=== PATIENT | female | born 2000 | race Caucasian/White ===

== ENCOUNTER 2025-02-01 08:30 | Outpatient (CLI) | payer BC, SELFPAY ==
--- NOTE | 2025-02-01 10:50 | ANES.PREANE2 ---
Pre-Anesthetic Assessment Preop Diagnosis: IUP Was Beta Nila taken within 24 hours: N/A Was Clonidine taken within 24 hours: N/A Social No alcohol and No tobacco Exam alert, oriented x 3, clear to auscultation bilaterally and regular rate & rhythm Airway Submandibular: within normal limits Cervical ROM: within normal limits Mallampati: Class II Dentition: full Anesthetic Plan ASA status: 2 Anesthesia: Regional (specify below) Other: G1, P0 here for epidural consult No issues during , only takes vitamin Denies any cardiac or pulmonary issues Patient states that she would like to labor naturally without epidural We discussed epidural risks/benefits. Plan for routine epidural placement if patient desires
== END 2025-02-01 08:31 ==
LOC: OPOB 02-16 07:44
PROVIDERS: PCP Family Medicine; Visit Provider Family Medicine
DX: Z53.8 Procedure and treatment not carried out for other reasons (principal)

== ENCOUNTER 2025-02-16 10:43 | Inpatient (IN) | payer BC, SELFPAY ==
[2025-02-16] VITALS (21 sets, daily range): BP systolic 130–188; BP diastolic 67–98; PULSE 92–118; RESP 16–17; TEMP 36.7–36.9; O2SAT 98; BMI 43.6
[2025-02-16 11:32] LABS: Hematocrit 32.5 % (36-47); Hemoglobin 9.90 g/dL (11.27-16.99); Mean Corpuscular HGB Conc 30.5 g/dL (30-55); Mean Corpuscular Hemoglobin 22.1 pg (27-33); Mean Corpuscular Volume 72.5 fl (85-98); Nucleated Red Blood Cells % 0 %; Platelet Count 271 10^3/cmm (157-399); Red Blood Count 4.48 10^6/uL (3.85-5.65); White Blood Count 13.57 10^3/uL (3.29-11.43)
--- NOTE | 2025-02-16 16:54 | PM.OPHPUD ---
Labor & Delivery H&P Update Date of Procedure: February 16, 2025 Date H&P Performed: 02/15/25 Changes to previous documentation: The patient arrived at the hospital with spontaneous rupture membranes. Admission Diagnosis: 24-year-old 1 at 39 weeks and 5 days presenting to the hospital with spontaneous rupture membranes and consistent contractions Planned procedure: Spontaneous vaginal delivery Other information: The patient is a healthy female with an unremarkable . She had consistent care. There were no other complications or problems during her . The patient had a gush of fluid just prior to coming to the hospital. When she arrived to the hospital she was found to have grossly ruptured membranes that were found to be nitrazine positive. Her blood type is A+. Her antibody screen is negative. She got a 149 on her initial glucose screen but passed her 3-hour glucose screen. She is rubella nonimmune. She is GBS negative. The remainder of her infectious disease profile is within normal limits. Related Problem List Diagnoses 1. 39 weeks gestation of : 2. Spontaneous rupture of membranes: A&P Assessment and plan 1. 39 weeks gestation of : I anticipate routine labor and vaginal delivery. Status: Acute 2. Spontaneous rupture of membranes: Status: Acute PDMP PDMP Reviewed: Not Reviewed
[2025-02-16] MEDS: oxytocin 30 UNIT/500 ML BAG 600 UNIT IV (17:18)
[2025-02-16] MEDS: lidocaine 2% INJ 20 mL INJECTION ×2 (17:20→17:30)
--- NOTE | 2025-02-16 17:42 | PM.DELIVERY ---
Delivery Note: Date of delivery: February 16, 2025 Pre-delivery diagnoses: 24-year-old 1 at 39 weeks and 5 days presenting with spontaneous rupture membranes Post-delivery diagnoses: Status post spontaneous vaginal delivery Procedure: Spontaneous vaginal delivery Delivering Physician: Leeroy Garcia Estimated blood loss (mL): 250 Pre-Delivery Course: The patient presented to the hospital with spontaneous rupture membranes. Her contractions gradually increased in strength and she progressed to complete without difficulty. Delivery: DELIVERY: The patient progressed to complete without difficulty. She delivered a female with a weight of 8 pounds 2 ounces with Apgars of 8, 9. The baby was delivered from the JAY position and placed on the mother's abdomen. The cord was then clamped and cut about 1 minute after delivery. There was no nuchal cord. There was no meconium. The placenta and 3 vessel cord were delivered intact shortly thereafter. The perineum and vaginal vault were carefully examined. The patient was noted to have deep vaginal lacerations on the right vaginal wall and posterior midline. 2% lidocaine 1 was used to anesthetize the area. 3-0 Vicryl was then used to reapproximate the vaginal mucosa using a running stitch, and running lock stitch.. Both the mother and the baby were in stable condition. Post-Delivery Status: Good History History History 1 Term Miscarriages/Ectopic Living Children A&P Assessment and plan 1. Spontaneous vaginal delivery: I anticipate routine care PDMP PDMP Reviewed: Not Reviewed Coding Level of Care Code Acute Code for Chg Fwd Diagnoses Spontaneous vaginal delivery O80
[2025-02-16] MEDS: benzocaine-menthol 78 gm Canister 1 SPRAY TOPICAL (20:08)
[2025-02-17 02:25] VITALS: BP 124/73; PULSE 81; RESP 16
[2025-02-17 05:36] VITALS: BP 125/71; PULSE 95; RESP 16; TEMP 36.9
[2025-02-17 05:48] LABS: Hematocrit 27.9 % (36-47); Hemoglobin 8.70 g/dL (11.27-16.99); Mean Corpuscular HGB Conc 31.2 g/dL (30-55); Mean Corpuscular Hemoglobin 22.4 pg (27-33); Mean Corpuscular Volume 71.7 fl (85-98); Platelet Count 253 10^3/cmm (157-399); Red Blood Count 3.89 10^6/uL (3.85-5.65); White Blood Count 18.43 10^3/uL (3.29-11.43)
--- NOTE | 2025-02-17 06:40 | P.DS_ITS ---
Discharge Providers TIRE DEBEADER Date of Admission: 02/16/25 10:43 Date of Discharge: 02/23/25 Attending Provider at Admission: Leeroy Garcia MD Attending Provider at Discharge: Leeroy Garcia MD Primary Care Provider: Leeroy Garcia MD Diagnoses at Discharge Discharge Diagnosis 1. Spontaneous vaginal delivery: Reason for Visit Reason for Visit: ROM Hospital Course Hospital Course The patient presented to the hospital with spontaneous rupture of membranes. She progressed to complete without difficulty. She had an unremarkable vaginal delivery. She did have significant intravaginal tears. her course was unremarkable. She breast-fed well. Her pain was well-controlled. Her bl eeding was within normal limits. Information Peripartum Data: Delivery Method: Vaginal Physical Exam Narrative: The patient is alert. She appears comfortable. Her heart has a regular rate and rhythm with no murmurs appreciated. Lungs are clear to auscultation bilaterally. Her fundus is firm and below the umbilicus. History History History 1 Term Miscarriages/Ectopic Living Children Discharge Data Studies Completed and Pending Laboratory Results WBC 18.43 10^3/uL (3.29-11.43) H 02/17/25 05:33 RBC 3.89 10^6/uL (3.85-5.65) 02/17/25 05:33 Hgb 8.70 g/dL (11.27-16.99) L 02/17/25 05:33 Hct 27.9 % (36-47) L 02/17/25 05:33 MCV 71.7 fl (85-98) L 02/17/25 05:33 MCH 22.4 pg (27-33) L 02/17/25 05:33 MCHC 31.2 g/dL (30-55) 02/17/25 05:33 RDW 15.0 % (12.1-15.1) 02/17/25 05:33 Plt Count 253 10^3/cmm (157-399) 02/17/25 05:33 MPV 11.9 fL (7.4-10.4) H 02/17/25 05:33 Neut % (Auto) 82.0 % 02/16/25 11:14 Lymph % (Auto) 11.9 % 02/16/25 11:14 Davie % (Auto) 5.2 % 02/16/25 11:14 Eos % (Auto) 0.2 % 02/16/25 11:14 Baso % (Auto) 0.4 % 02/16/25 11:14 Neut # (Auto) 11.13 10^3/uL (1.8-7.7) H 02/16/25 11:14 Lymph # (Auto) 1.6 10^3/uL (0.8-4.8) 02/16/25 11:14 Davie # (Auto) 0.7 10^3/uL (0.2-0.9) 02/16/25 11:14 Eos # (Auto) 0.0 10^3/uL (0.0-0.8) 02/16/25 11:14 Baso # (Auto) 0.1 10^3/uL (0.0-0.1) 02/16/25 11:14 Nucleated RBC % (auto) 0 % 02/16/25 11:14 Nucleated RBCs # 0.0 /100WBC 02/16/25 11:14 Blood Type A Positive 02/16/25 11:14 Rho(D) Type Rh positive 02/16/25 11:14 Antibody Screen Negative 02/16/25 11:14 Vitals Last Vital Signs Temp 98.5 F 02/17/25 05:36 Pulse 95 02/17/25 05:36 Resp 16 02/17/25 05:36 BP 125/71 02/17/25 05:36 Pulse Ox 98 02/16/25 22:10 O2 Del Method Room Air 02/17/25 05:36 Results Labs OB ([facility]): Blood Type A Positive 02/16/25 Antibody Screen Negative 02/16/25 Hct, (36-47) 27.9 % L 02/17/25 Hgb, (11.27-16.99) 8.70 g/dL L 02/17/25 Rho(D) Type Rh positive 02/16/25 Plt Count, (157-399) 253 10^3/cmm 02/17/25 Discharge Plan Discharge Patient Disposition: Home Condition: Stable Prescriptions: New ibuprofen 800 mg Tablet 800 mg PO TID Qty: 45 0RF Vitamin 27 mg iron- 800 mcg Tablet 1 tab PO DAILY Qty: 90 2RF Discharge Order = DC NOW: Discharge Order (Routine); Ordered 02/17/25 Ordered By: Leeroy Garcia Referrals: Leeroy Garcia MD [Primary Care Provider, [facility]] - 03/30/25 10:00 am Discharge Diet: Usual diet Discharge Activity: Limit activity as instructed Patient Instructions: Depression (DC), Opioid Safety (DC), Preeclampsia and Eclampsia After Delivery (GEN), Hemorrhage (DC), OB Discharge Report, OB Food/Drug Interaction Guide, OB Care at Home, Opioid Safety, OB Vaginal Deliveries, Patient Portal & Zandra Instructions, Abnormal Bleeding Discharge Attestations TIRE DEBEADER Time Spent in Discharge Care*: less than 30 min Coding Level of Care Code Acute Code for Chg Fwd Diagnoses Spontaneous vaginal delivery O80
[2025-02-17] MEDS: PRENATAL VIT NO.130/IRON/FOLIC 1 EACH TABLET PO (09:36)
[2025-02-17 09:46] VITALS: BP 123/78; PULSE 108; RESP 18; TEMP 36.9; O2SAT 96
[2025-02-17] MEDS: measles,mumps,rubella pf Vial (w/diluent) 0.5 ML SUBCUT (18:09)
[2025-02-17 18:47] VITALS: BP 145/80; PULSE 95; RESP 16; TEMP 36.7; O2SAT 97
== END 2025-02-17 19:00 | disposition home or self-care (01) | DRG 807 ==
LOC: OPOB 10:44 → OBGYN 10:44
PROVIDERS: Admitting Provider Family Medicine; PCP Family Medicine; Visit Provider Family Medicine
DX: O71.4 Obstetric high vaginal laceration alone (principal); Z37.0 Single live birth; Z3A.39 39 weeks gestation of pregnancy
CPT/HCPCS: 36415; 59025; 59409; 83986; 85025; 85027; 86850; 86900; 90707; 96372; 99211; J2590; J7121; J9999